=== PATIENT | female | born 1950 | race Caucasian/White ===

== ENCOUNTER 2016-06-01 09:10 | Day surgery (SDC) | payer OTHER ==
[2016-05-26 08:54] VITALS: BMI 36.0
--- NOTE | 2016-05-26 09:20 | PAT Medication Instructions ---
Service Date May 26, 2016. Current Home Medication List Atorvastatin (Lipitor), 20 MG PO HS Calcium Carbonate (Calcium), 1 TAB PO QAM Cholecalciferol (Vitamin D 1000 Unit), 1,000 INTER.UNIT PO QAM Hydrochlorothiazide (Hctz), 25 MG PO NOON Lisinopril (Zestril), 30 MG PO HS Multiple Vitamin (Multivitamin), 1 TAB PO QAM Omeprazole (Prilosec), 40 MG PO QAM Sertraline (Zoloft), 25 MG PO HS Medication Instructions For Your Scheduled Surgery - Hold the following medications the morning of surgery: Multiple Vitamin (Multivitamin), 1 TAB PO QAM Cholecalciferol (Vitamin D 1000 Unit), 1,000 INTER.UNIT PO QAM Calcium Carbonate (Calcium), 1 TAB PO QAM Hydrochlorothiazide (Hctz), 25 MG PO NOON - Take the following medications the morning of surgery with a sip of water: Omeprazole (Prilosec), 40 MG PO QAM - Hold the following medications as scheduled the night before surgery: Lisinopril (Zestril), 30 MG PO HS - Take the following medications as scheduled the night before surgery: Sertraline (Zoloft), 25 MG PO HS Atorvastatin (Lipitor), 20 MG PO HS If you have any questions please call us at [phone] (Jasmin Maher PA-C) or [phone] or [phone]
[2016-05-28 15:01] VITALS: BMI 36.0
[~2016-06-01] VITALS: Ht 147.3 cm; Wt 78.0 kg
[~2016-06-01 09:10] MED LIST: ATOR-54 PO; CALC-393 PO; CEFAZOLIN 2000 MG/60 ML D5W IV SCH; CHOL100027 PO; HYDR25TA4 PO; LACTATED RINGER'S 1000ML 1,000 ML IV SCH; LISI-793 PO; MULTTAB58 PO; OMEP40CA41 PO; SERT25TA PO
[2016-06-01 09:40] VITALS: BP 146/74; PULSE 94; TEMP 36.8; O2SAT 96; Ht 147.3 cm; Wt 78.0 kg
--- NOTE | 2016-06-01 10:27 | History & Physical Bridge Note ---
H&P Re-Evaluation Bridge Note: I have examined the patient, reviewed the History & Physical and in the interval since the performance of the History & Physical I have noted the following changes of clinical significance: No changes noted
[2016-06-01] MEDS ORDERED: BACITRACIN OINT 15 GM TUBE ONE (10:55)
[2016-06-01] MEDS ORDERED: BUPIVACAINE 0.5 % 5 MG/1 ML MPF 30ML VIAL ONE (10:56)
[2016-06-01] MEDS ORDERED: LIDOCAINE HCL 1% 20 ML VIAL ONE (10:57)
[2016-06-01] MEDS ORDERED: MIDAZOLAM HCL 1 MG/ML 2ML VIAL ONE (11:10)
[2016-06-01] MEDS ORDERED: LIDOCAINE HCL 2% 2 ML VIAL (20MG/ML) ONE (11:10)
[2016-06-01] MEDS ORDERED: DEXAMETHASONE SOD INJ 4 MG/ML VIAL ONE (11:10)
[2016-06-01] MEDS ORDERED: ROCURONIUM BROMIDE 10 MG/ML 5 ML VIAL ONE (11:10)
[2016-06-01] MEDS ORDERED: PROPOFOL IV EMULSION 10 MG/ML 20 ML VIAL IV ONE (11:10)
[2016-06-01] MEDS ORDERED: FENTANYL CITRATE INJ 50 MCG/1 ML 2 ML VIAL ONE (11:10)
[2016-06-01] MEDS ORDERED: ONDANSETRON INJ 2 MG/ML 2 ML VIAL ONE (11:10)
[2016-06-01] MEDS ORDERED: EpHEDrine SULFATE 50MG/5ML SYR ONE (12:23)
[2016-06-01] MEDS ORDERED: ONDANSETRON INJ 2 MG/ML 2 ML VIAL IV PRN ×2 (12:45→13:30)
[2016-06-01] MEDS ORDERED: ATROPINE SULFATE 0.1 MG/ML 5ML SYR IV PRN (12:45)
[2016-06-01] MEDS ORDERED: PHENYLEPHRINE 100MCG/ML 5ML SYR IV PRN (12:45)
[2016-06-01] MEDS ORDERED: EpHEDrine SULFATE INJ 50 MG/ML AMP IV PRN (12:45)
[2016-06-01] MEDS ORDERED: NEOSTIGMINE METHYLSULFATE 5 MG/5 ML SYR ONE (13:11)
[2016-06-01] MEDS ORDERED: GLYCOPYRROLATE INJ 0.2 MG/ML VIAL ONE (13:11)
[2016-06-01] MEDS ORDERED: D5W AND 1/2NSS + 20MEQ KCL 1,000 ML IV SCH (13:27)
--- NOTE | 2016-06-01 13:27 | [facility] Post Operative Brief Note ---
Immediate Operative Summary Operative Date Jun 01, 2016. Pre-Operative Diagnosis Chronic Cholecystitis, Cholelithiasis Post-Operative Diagnosis Chronic Cholecystitis, Cholelithiasis Procedure(s) Performed Laparoscopic Cholecystectomy Surgeon Dr. Ibarra Welder Tack Surgeon(s) surgical supply assistant Estimated Blood Loss 20ml Findings chronic cholecystitis, cholelithiasis Fluids (cc crystalloids) 1100ml Specimens A. Gallbladder Drains none Anesthesia general Complication(s) None Disposition Recovery Room / PACU
[2016-06-01] MEDS ORDERED: HYDROmorphone INJ 1 MG/ML SYR IV PRN (13:30)
[2016-06-01] MEDS ORDERED: OXYCODONE/ACETAMINOPHEN 5-325 TAB PO PRN (13:30)
[2016-06-01] MEDS ORDERED: OXYC-57 PO (13:31)
--- NOTE | 2016-06-01 13:34 | Discharge Instructions ---
Discharge Instructions Visit Reason for Visit: Chronic Cholecystitis, Cholelithiasis Discharge Discharge Diagnosis / Problem: S/P laparoscopic cholecystectomy Discharge Goals Goal(s): Decrease discomfort, Improve function Activity Recommendations Activity Limitations: per Instructions/Follow-up section Lifting Limitations: no more than 25 pounds Exercise/Sports Limitations: gradually increase as tolerated May Resume Sexual Activity: when tolerated Shower/Bathe: may shower/bathe in 3 days Driving or Machine Use: resume 3 days after discharge Anesthesia . Post Anesthesia Instructions: If you have had General Anesthesia or IV Sedation: * Do not drive today. * Resume driving when surgeon permits. * Do not make important decisions or sign legal documents today. * Call surgeon for: 1. Temperature elevations greater than 101 degrees F. 2. Uncontrollable pain. 3. Excessive bleeding. 4. Persistent nausea and vomiting. 5. Medication intolerance (nausea, vomiting or rash). * For nausea and vomiting use only clear liquids such as: tea, soda, bouillon until nausea subsides, then gradually increase diet as tolerated. * If you have any concerns or questions, call your surgeon's office. If physician is unavailable and it is an emergency, call 911 or go to the nearest emergency room. . Instructions / Follow-Up Instructions / Follow-Up keep all dressing on for 4 days, she can take a shower on 06/05/2016, no driving while taking pain medicine, Follow up 1 week, Diet Recommendations Recommended Home Diet: resume previous diet Procedures Procedures Performed: Laparoscopic Cholecystectomy Pending Studies Studies pending at discharge: no Medical Emergencies . Who to Call and When: Medical Emergencies: If at any time you feel your situation is an emergency, please call 911 immediately. . Non-Emergent Contact Call Non-Emergent contact if: you have a fever, temperature is above 100.5, your pain is not controlled, your pain is worsening, wound has increased drainage, wound has increased redness . . "Provider Documentation" section prepared by Ryan Ibarra.
[2016-06-01] MEDS: HYDROmorphone INJ 2 MG/ML SYR/VIAL IV PRN ×2 (13:42→13:54)
[2016-06-01 14:47] VITALS: BP 145/89; PULSE 59; TEMP 36.3; O2SAT 95
[2016-06-01 15:15] VITALS: BP 117/59; PULSE 62; O2SAT 98
--- NOTE | 2016-06-01 15:37 | Anesthesiology Progress Note ---
Anesthesia Post Op Note Date & Time Jun 01, 2016 at 15:37 Vital Signs Pain Intensity: 0 Vital Signs Past 12 Hours Date Time Temp Pulse Resp B/P Pulse Ox O2 Delivery O2 Flow Rate FiO2 06/01/16 14:47 36.3 59 20 145/89 95 Room Air 06/01/16 14:29 36.3 57 10 139/59 93 Room Air 06/01/16 14:23 129/57 06/01/16 14:22 61 20 06/01/16 14:22 61 20 91 06/01/16 14:18 130/53 06/01/16 14:17 64 16 90 06/01/16 14:17 64 16 06/01/16 14:13 127/56 06/01/16 14:12 65 24 06/01/16 14:12 65 24 88 06/01/16 14:08 126/59 06/01/16 14:07 64 17 90 06/01/16 14:07 64 17 06/01/16 14:03 111/57 06/01/16 14:02 63 23 86 06/01/16 14:02 65 23 06/01/16 13:58 118/47 06/01/16 13:57 66 12 100 06/01/16 13:57 69 12 06/01/16 13:53 119/89 06/01/16 13:52 69 15 88 06/01/16 13:52 69 15 06/01/16 13:48 123/74 06/01/16 13:47 69 22 98 06/01/16 13:47 69 22 06/01/16 13:43 126/69 06/01/16 13:42 72 20 96 06/01/16 13:42 72 20 06/01/16 13:38 127/77 06/01/16 13:37 72 20 96 06/01/16 13:37 72 20 06/01/16 13:33 143/72 06/01/16 13:32 36.4 81 18 144/69 98 Mask 10 06/01/16 13:32 79 19 96 06/01/16 13:32 78 19 06/01/16 09:40 36.8 94 18 146/74 96 Room Air Notes Mental Status: alert / awake / arousable, participated in evaluation Pt Amnestic to Procedure: Yes Nausea / Vomiting: adequately controlled Pain: adequately controlled Airway Patency, RR, SpO2: stable & adequate BP & HR: stable & adequate Hydration State: stable & adequate Anesthetic Complications: no major complications apparent
[2016-06-01 16:00] VITALS: BP 114/52; PULSE 62; TEMP 36.4; O2SAT 95
--- NOTE | 2016-06-01 16:39 | OPERATIVE REPORT ---
DATE OF OPERATION: 06/01/2016 PREOPERATIVE DIAGNOSIS: Chronic cholecystitis, cholelithiasis. POSTOPERATIVE DIAGNOSIS: Same. PROCEDURE: Laparoscopic cholecystectomy. SURGEON: Fred Davis MD. ANESTHESIA: General. ESTIMATED BLOOD LOSS: About 20 mL. FINDINGS: Chronic cholecystitis, cholelithiasis. COMPLICATIONS: None. IV FLUIDS: 1100 mL. COMPLICATIONS: None. INDICATIONS FOR THE PROCEDURE: This is a 65-year-old female who presented with chronic right upper quadrant pain. The patient had ultrasound showing gallstones. The patient required to do laparoscopic cholecystectomy, possible open, possible cholangiogram. I did talk to the patient about the benefit, risk, and alternates of procedure. I indicated the risks may include but not limited such as bleeding, infection, injury to common bile duct, injury to bowel, may need ERCP, myocardial infarction, DVT, stroke, incisional hernia, even . The patient understands. She signed informed consent. I answered all questions. DETAILS OF PROCEDURE: We brought the patient to the OR, put the patient in the supine position. The patient received SCDs on bilateral legs to prevent DVT. Also, the patient received 2 grams Ancef IV for prophylactic antibiotic. The patient received general anesthesia without difficulty. The abdomen was prepped and draped in routine sterile fashion. After a timeout, I injected local anesthesia by using 1% lidocaine mixed with 0.5% Marcaine around the umbilical area. Then I made a small incision just above umbilical, opened fascia and opened peritoneum under direct vision, I put a Yi trocar in, connected to CO2 to create a pneumoperitoneum. Flow rate is 6 liter per minute. Pressure not more than 14 mmHg. Once got a nice pneumoperitoneum, we put another three 5 mm trocar on the right upper quadrant. Once all trocars in, I put grasper in to hold the base of the gallbladder, put direction to the diaphragm. I used another grasper to hold the pouch of the gallbladder, put a latter to expose the triangle of Calot. The cystic duct was identified and mobilized. Then I put two 5 mm metal clips on the proximal cystic duct, one on the distal cystic duct and then used s scissor to transect the cystic duct. Rechecked no leak. Then the cystic artery was identified and mobilized. Then I put two 5 mm metal clips on the proximal cystic artery along the distal cystic artery. I used a scissor to transact the cystic artery. Then I used Bovie to take down the gallbladder from the liver bed without difficulty. I rechecked, no active bleeding and no leak and then we removed the gallbladder through the catch bag. Then we reinserted Yi trocar in and created pneumoperitoneum again to look around the liver bed. No active bleeding, no bile leak and then we removed all trocars under direct vision. No active bleeding. Pneumoperitoneum was released. Then, closed the umbilical incision in fascial layer by using #1 Vicryl [id number] x2, closed subcutaneous layer by using 2-0 Vicryl, closed skin by using 4-0 Vicryl, another 3.5 mm trocar site closed skin by using 4-0 Vicryl. Then we put the dressing on. The patient tolerated the procedure well. All the instrument, needle and sponge count correct x2 at the end of case. The patient transferred to recovery room in stable condition. Once we finished the procedure, I did talk to the patient's family member about OR finding and procedure we did and they understand. Also, I gave the patient the postop care instruction and they understand. I attest to the content of the Intraoperative Record and any orders documented therein. Any exceptions are noted below. JERRY
== END 2016-06-01 16:12 | disposition home or self-care (01) ==
LOC: C.ACU 09:10
PROVIDERS: ATTEND Surgery
DX: K80.10 Calculus of gallbladder with chronic cholecystitis without obstruction (principal); K21.9 Gastro-esophageal reflux disease without esophagitis; F32.9 Major depressive disorder, single episode, unspecified; G43.909 Migraine, unspecified, not intractable, without status migrainosus; E78.5 Hyperlipidemia, unspecified; D12.6 Benign neoplasm of colon, unspecified; I10 Essential (primary) hypertension; K76.0 Fatty (change of) liver, not elsewhere classified; F41.9 Anxiety disorder, unspecified